=== PATIENT | male | born 1970 | race Caucasian/White ===

== ENCOUNTER 2019-09-01 21:56 | Emergency (ER) | payer BC ==
[2019-09-01] MEDS ORDERED: MORPHINE SULFATE 5 MG/ML VIAL IVP ONE (22:06)
[2019-09-01] MEDS ORDERED: ONDANSETRON HCL IV 4 MG/2 ML VIAL IVP ONE (22:06)
[2019-09-01] MEDS ORDERED: 0.9 % SODIUM CHLORIDE 1000ML 1,000 ML IV ONE (22:06)
--- NOTE | 2019-09-01 22:08 | Emergency Department Record ---
History of Present Illness - General Chief Complaint: Abdominal Pain Stated Complaint: ABD PAIN Time Seen by Provider: 09/01/19 21:59 Source: Patient, Family Mode of Arrival: Ambulatory Limitations: No limitations - History of Present Illness Initial Comments: 48 yo male presents with right sided abdominal pain that started abruptly 2 hours ago. The pain is sharp and came on at rest. No fevers. It was associated with nausea and vomiting. No blood in the vomit. No dysuria or diarrhea. No fever. He has had renal stones before but this is different. He was able to pass the prior renal stones that he had without surgery. No other recent changes in his health. No hematuria. He reports he was in his normal state of health prior to the pain. MD Complaint: Abdominal pain, Flank pain -: Hour(s) (2) Location: R Flank Radiation: R flank Migration to: R Flank Severity: Moderate Quality: Aching Consistency: Constant Improves With: Nothing Worsens With: Movement Context: Other Associated Symptoms: Nausea, Vomiting - Related Data Home Medications Medication Instructions Recorded Confirmed Last Taken Bupropion HCl [Wellbutrin Sr] 100 mg PO BID 09/01/19 09/01/19 Unknown Gabapentin 300 mg PO QHS 09/01/19 09/01/19 Unknown Tamsulosin HCl [Flomax] 0.4 mg PO DAILY 09/01/19 09/01/19 Unknown Previous Rx's Medication Instructions Recorded Hydrocodone/APAP 5/325Mg [[place] 1 each PO Q6H #12 tab 09/01/19 5Mg/325Mg] Ondansetron [Zofran Odt] 4 mg PO Q8H #15 tab.rapdis 09/01/19 Allergies Allergy/AdvReac Type Severity Reaction Status Date / Time Penicillins Allergy HIVES Verified 09/01/19 22:08 Review of Systems Constitutional: Denies: Chills, Fever, Malaise, Weakness Eyes: Denies: Eye discharge ENT: Denies: Congestion, Throat pain Respiratory: Denies: Cough Cardiovascular: Denies: Chest pain, Syncope Endocrine: Denies: Fatigue Gastrointestinal: Reports: Abdominal pain, Nausea, Vomiting. Denies: Constipation, Diarrhea, Hematemesis, Hematochezia, Melena Genitourinary: Denies: Dysuria, Frequency, Hematuria, Testicular pain, Urgency Musculoskeletal: Reports: Back pain. Denies: Arthralgia, Joint swelling, Myalgia Skin: Denies: Bruising, Change in color, Rash Neurological: Denies: Headache, Weakness Psychiatric: Denies: Anxiety Hematological/Lymphatic: Denies: Easy bleeding, Easy bruising Physical Exam - General General Appearance: Alert, Oriented x3, Cooperative, No acute distress Limitations: No limitations - Head Head exam: Atraumatic, Normal inspection - Eye Eye exam: Normal appearance, PERRL. negative: Conjunctival injection, Scleral icterus - ENT ENT exam: Normal exam Ear exam: Normal external inspection Nasal Exam: Normal inspection Mouth exam: Normal external inspection - Neck Neck exam: Normal inspection - Respiratory Respiratory exam: Normal lung sounds bilaterally. negative: Respiratory distress - Cardiovascular Cardiovascular Exam: Regular rate, Normal rhythm, Normal heart sounds - GI/Abdominal GI/Abdominal exam: Soft, Other (No rash). negative: Distended, Guarding, Rebound, Rigid, Tenderness - Rectal Rectal exam: Deferred - exam: Deferred - Extremities Extremities exam: Normal inspection - Back Back exam: Reports: Normal inspection, CVA tenderness (R), Full ROM, Tenderness. Denies: CVA tenderness (L), Muscle spasm, Paraspinal tenderness, Vertebral tenderness - Neurological Neurological exam: Alert, Oriented X3 - Psychiatric Psychiatric exam: Normal affect, Normal mood. negative: Agitated, Anxious - Skin Skin exam: Dry, Intact, Normal color, Warm Course Vital Signs 09/01/19 22:02 Temperature 98.0 F Pulse Rate [ 72 Left] Respiratory 16 Rate Blood Pressure 151/98 [Left] Pulse Ox 97 - Reevaluation(s) Reevaluation #1: 09/01/19 23:11 The CBC and CMP were reviewed No acute changes 09/01/19 23:20 CT demonstrates a 4mm stone at the right UPJ with moderate dilatation of the collecting system. Additional R 5mm intrarenal stone. 09/01/19 23:37 The results were discussed with the patient. He is much improved with the Toradol. He was able to provide a urine. 09/01/19 23:39 The UA was reviewed. No sign of infection on the UA. 09/01/19 23:41 09/01/19 23:55 The patient is doing well and is comfortable with DC. We discussed at length reasons to immediately return to the ED as well as close follow up. The patient will call the PCP for close follow up of this ED visit to review this visit and the tests performed DC vitals were reviewed. The patient was given a copy of the radiology reports to review with their family doctor for follow up Medical Decision Making - Lab Data Result diagrams: 09/01/19 22:10 09/01/19 22:10 Disposition Disposition: Discharge Clinical Impression: Renal colic on right side Disposition: Home, Self-Care Condition: (1) Good Instructions: Kidney Stones (ED), Renal Colic (ED) Additional Instructions: Review this ER visit and the tests performed with your family doctor Call your doctor for the next available follow up appointment Return to the ER for a recheck immediately if worse, any new concerns or questions Strain your urine to see if the stone passes Take the prescriptions provided as directed Prescriptions: Hydrocodone/APAP 5/325Mg [[place] 5Mg/325Mg] 1 each PO Q6H #12 tab Ondansetron [Zofran Odt] 4 mg PO Q8H #15 tab.rapdis Forms: Patient Portal Access Time of Disposition: 23:55 Quality - Quality Measures Quality Measures: N/A - Blood Pressure Screening Does Patient Have Any of the Following: No Blood Pressure Classification: Hypertensive Reading Systolic Measurement: 153 Diastolic Measurement: 92 Screening for High Blood Pressure: < Pre-Hypertensive BP, F/U Documented > [G8950] Pre-Hypertensive Follow-up Interventions: Referral to alternative/primary care provider.
[2019-09-01 22:24] LABS: HEMATOCRIT 43.4 % (42.0-52.0); HEMOGLOBIN 14.2 gm/dl (14.0-18.0); MEAN CELL VOLUME 91.6 fl (81-97); MEAN CORPUSCULAR HGB CONC 32.7 g/dl (32-36); PLATELET COUNT 279 K/uL (130-400); RED BLOOD COUNT 4.74 M/uL (4.40-5.70); RED CELL DISTRIBUTION WIDTH 12.8 % (11.5-14.5); WHITE BLOOD COUNT W/O DIFF 7.9 K/uL (4.2-12.2)
[2019-09-01 22:36] LABS: BLOOD UREA NITROGEN 20 mg/dL (6-20); CREATININE 1.2 mg/dL (0.7-1.2); EST GLOMERULAR FILTRATION RATE > 60 mL/min
[2019-09-01 22:37] LABS: LIPASE 35 U/L (13-60); TOTAL PROTEIN 7.2 g/dL (6.6-8.7)
[2019-09-01 22:39] LABS: GLUCOSE,RANDOM 166 mg/dL (74-109)
[2019-09-01 22:41] LABS: ALT/SGPT 41 U/L (<41)
[2019-09-01 22:42] LABS: ALB/GLOB RATIO 1.8 (1.1-1.8); ALBUMIN 4.6 g/dL (4.0-5.0); ALKALINE PHOSPHATASE 52 U/L (40-129); AST/SGOT 23 U/L (10.0-50.0)
--- NOTE | 2019-09-01 23:09 | CT SCAN REPORT ---
EXAMINATION: ABDOMEN/PELVIS WO CONTRAST EXAM DATE:09/01/2019 10:43 PM TECHNIQUE: Spiral CT images were obtained from the lung bases to the ischial tuberosities without int ravenous contrast. Sagittal and coronal 2-D reformats were made from source images. Oral contrast: N o INDICATION: right flank pain COMPARISON: None FINDINGS: CT Abdomen: Evaluation of the solid abdominal organs and vascular structures is limited without intr avenous contrast. Liver: The liver is normal in size and morphology. No focal liver lesions. Bile ducts: Normal caliber bile ducts. Gallbladder: No calcified gallstones or other abnormal finding. Pancreas: No focal lesions or peripancreatic inflammation. No dilation of the main pancreatic duct . Spleen: Normal size Adrenals: No mass or other abnormality Kidneys and Ureters: A 4 mm stone at the right ureteropelvic junction causes moderate dilation of th e collecting system. Additional 5 mm right intrarenal stone. No left urinary tract stones or hydronep hrosis. No focal renal lesions. GI: The bowel is unremarkable. The appendix is not visualized. Vasculature: Unremarkable. No aneurysmal dilation of the abdominal aorta. Lymph Nodes: No lymphadenopathy. Abdominal Wall: Unremarkable. Peritoneal Cavity: No free intraperitoneal fluid or gas. Retroperitoneum: Unremarkable. Skeletal: Scoliosis with posterior thoracolumbar fusion. Lung bases: The lung bases are unremarkable. CT Pelvis (In addition to findings described above.): Bladder: The bladder is unremarkable. Lymph nodes: No lymphadenopathy. IMPRESSION: A 4 mm stone at the right UPJ causes moderate hydronephrosis. There is an additional right intrarenal stone. Dictated by: Rosendo Recinos MD on 09/01/2019 11:03 PM. .
[2019-09-01] MEDS ORDERED: KETOROLAC 30 MG/ML VIAL IVP ONE (23:10)
[2019-09-01 23:31] LABS: URINE APPEARANCE CLEAR; URINE BILIRUBIN NEGATIVE (NEGATIVE); URINE BLOOD MODERATE (NEGATIVE); URINE COLOR YELLOW; URINE GLUCOSE (UA) NEGATIVE (NEGATIVE); URINE KETONE NEGATIVE (NEGATIVE); URINE LEUKOCYTE ESTERASE NEGATIVE (NEGATIVE); URINE NITRITE NEGATIVE (NEGATIVE); URINE PROTEIN NEGATIVE (NEGATIVE); URINE UROBILINOGEN 0.2 E.U./dL (0.20 - 1.00)
[2019-09-01 23:37] LABS: URINE WBC 0 - 2 (0-2/hpf)
[2019-09-01 23:38] LABS: URINE EPITHELIAL CELLS 0 - 2 (FEW)
[2019-09-01] MEDS ORDERED: ONDANSETRON 4 MG ODT TABLET SL ONE (23:54)
[2019-09-01] MEDS ORDERED: HYDROCODONE/APAP 5/325MG TABLET PO ONE (23:54)
== END 2019-09-02 00:12 | disposition home or self-care (01) ==
LOC: ER 21:56
DX: N13.2 Hydronephrosis with renal and ureteral calculous obstruction (principal); R11.2 Nausea with vomiting, unspecified; Z87.442 Personal history of urinary calculi
CPT/HCPCS: 74176; 80053; 81001; 83690; 85027; 96361; 96374; 96375; 99284; J1885; J2405; J7030